=== PATIENT | female | born 1975 | race Hispanic/Latino ===

== ENCOUNTER 2017-05-28 11:00 | Outpatient (RCR) | payer OTHER | END 2017-06-17 | LOC: OT 11:00 | PROVIDERS: ATTEND Orthopaedic Surgery Hand Surgery | DX: M24.831 Other specific joint derangements of right wrist, not elsewhere classified (principal); M25.531 Pain in right wrist; M25.532 Pain in left wrist; R53.1 Weakness | CPT/HCPCS: 97139 ==